=== PATIENT | female | born 1935 | race Caucasian/White ===

== ENCOUNTER 2017-12-26 09:11 | Inpatient (IN) | payer MEDICARE, OTHER ==
[~2017-12-26] VITALS: Ht 177.8 cm; Wt 91.6 kg
[2017-12-26] VITALS (29 sets, daily range): BP systolic 106–166; BP diastolic 75–110
--- OUTSIDE RECORDS SUMMARY | 2017-12-26 09:14 | XMS REPORT | Clinical Summary ---
Author Author [facility] Organization [facility] Address Unknown Phone Unavailable Care Team Providers Care Geometry Tutor Name Role Phone Asked, No Pcp PCP Unavailable Allergies Active Allergy Reactions Severity Noted Date Comments Clindamycin Other (See Comments) High 01/03/2017 Severe redness Penicillins Swelling 02/23/2017 Current Medications Prescription Sig. Disp. Refills Start End Date Status Date diclofenac (VOLTAREN) 1 % Apply topically 4 (four) 1 Tube 0 01/04/20 Active gel times a day. 17 Active Problems Problem Noted Date Stiffness of right knee 04/17/2017 Crepitus of joint of left knee 04/17/2017 Muscle weakness of lower extremity 04/17/2017 Muscle atrophy of lower extremity 04/17/2017 Bilateral post-traumatic osteoarthritis of knee 01/03/2017 Encounters Date Type Specialty Care Team Description 02/23/2017 Office Visit Sports Medicine Myles Malave MD Primary osteoarthritis of left knee (Primary Dx) 01/21/2017 Office Visit Orthopedic Surgery Christiano Gates MD Bilateral post-traumatic osteoarthritis of knee (Primary Dx); Stiffness of right knee; Crepitus of joint of left knee; Muscle weakness of lower extremity; Muscle atrophy of lower extremity 01/03/2017 Office Visit Sports Medicine Myles Malave MD Bilateral post-traumatic osteoarthritis of knee (Primary Dx) after 12/25/2016 Family History Medical History Relation Name Comments Diabetes Father Cancer Mother Relation Name Status Comments Father Mother Social History Tobacco Use Types Packs/Day Years Used Date Never Smoker Smokeless Tobacco: Never Used Alcohol Use Drinks/Week oz/Week Comments No Sex Assigned at Date Recorded Not on file Last Filed Vital Signs Vital Sign Reading Time Taken Blood Pressure 134/85 01/21/2017 11:53 AM STAFF DEVELOPMENT COORDINATOR Pulse 72 01/21/2017 11:53 AM STAFF DEVELOPMENT COORDINATOR Temperature - - Respiratory Rate - - Oxygen Saturation - - Inhaled Oxygen - - Concentration Weight 113 kg (250 lb) 01/03/2017 10:59 AM STAFF DEVELOPMENT COORDINATOR Height 160 cm (5' 3") 01/21/2017 11:53 AM STAFF DEVELOPMENT COORDINATOR Body Mass Index 44.29 01/03/2017 10:59 AM STAFF DEVELOPMENT COORDINATOR Plan of Treatment Health Maintenance Due Date Last Done Comments SHINGRIX VACCINE (#1) 1987 ZOSTER VACCINE 1997 PNEUMOCOCCAL 2002 POLYSACCHARIDE VACCINE AGE 65 AND OVER PNEUMOCOCCAL-13 2002 INFLUENZA VACCINE 09/21/2017 Procedures Procedure Name Priority Date/Time Associated Diagnosis Comments MI ARTHROCENTESIS Routine 02/23/2017 Primary osteoarthritis of Results for this ASPIR&/INJ MAJOR JT/BURSA 2:55 PM STAFF DEVELOPMENT COORDINATOR left knee procedure are in the W/O US results section. XR KNEE 1 OR 2 VW Routine 01/03/2017 Pain in both knees, Results for this BILATERAL 11:13 AM STAFF DEVELOPMENT COORDINATOR unspecified chronicity procedure are in the results section. after 12/25/2016 Results * Large Joint Arthrocentesis (02/23/2017 2:55 PM) Narrative Performed At Myles Malave MD 02/23/20172:55 PM Large Joint Arthrocentesis Consent given by: patient Site marked: site marked Timeout: Immediately prior to procedure a time out was called to verify the correct patient, procedure, equipment, vp software support and site/side marked as required Supporting Documentation Indications: pain Procedure Details Preparation: Patient was prepped and draped in the usual sterile fashion Location: knee - L knee Left side: Needle size: 20 G Approach: lateral Left knee medications administered: 2 mL bupivacaine 0.25 % (2.5 mg/mL); 80 mg methylPREDNISolone acetate 80 mg/mL; 5 mL lidocaine 10 mg/mL (1 %) Patient tolerance: patient tolerated the procedure well with no immediate complications * XR Knee 1 Or 2 Vw Bilateral (01/03/2017 11:13 AM) Narrative Performed At [facility] Right knee 2 views: Intramedullary hardware of the distal femur intact with no evidence of loosening or fractures. Severe tricompartmental osteoarthritis with scattered osteophytes Left knee 2 views: Severe tricompartmental joint space narrowing with scattered osteophytes. No obvious fractures or dislocations Performing Organization Address City/State/Zipcode Phone Number [facility] [address] [place] [address] after 12/25/2016 Insurance Payer Benefit Subscriber ID Type Phone Address Plan / Group HUMANA MEDICARE HUMANA xxxxxxxxx PPO MEDICARE PPO/PFFS/E [facility] [place] [address]
[2017-12-26] MEDS ORDERED: PIPER-TAZ 3.375 GM 50 ML IV ONE (09:30)
[2017-12-26] MEDS ORDERED: DIPHENHYDRAMINE HCL INJ 50 MG/ML VIAL IV ONE (09:30)
[2017-12-26] MEDS ORDERED: METRONIDAZOLE 500MG/NS 100ML 100 ML IV ONE (09:30)
[2017-12-26] MEDS ORDERED: DEXAMETHASONE SOD PHOS 10 MG/1 ML VIAL IV ONE (09:30)
[2017-12-26] MEDS ORDERED: ONDANSETRON HCL INJ 2 MG/ML VIAL IV PRN (10:00)
[2017-12-26] MEDS ORDERED: SODIUM CHLORIDE FLUSH 10 ML SYR INJ PRN (10:00)
[2017-12-26] MEDS ORDERED: MORPHINE SULFATE 2 MG/ML SYR IV PRN (10:00)
--- OUTSIDE RECORDS SUMMARY | 2017-12-26 10:46 | XMS REPORT | Clinical Summary ---
Author Author [facility] Address Unknown Phone Unavailable Care Team Providers Care Bisque Tile Burner Name Role Phone Asked, No Pcp PCP [...] Taken Blood Pressure 134/85 01/21/2017 11:53 AM CNC ROUTER OPERATOR Pulse 72 01/21/2017 11:53 AM CNC ROUTER OPERATOR Temperature - - Respiratory Rate - - Oxygen Saturation - - Inhaled Oxygen - - Concentration Weight 113 kg (250 lb) 01/03/2017 10:59 AM CNC ROUTER OPERATOR Height 160 cm (5' 3") 01/21/2017 11:53 AM CNC ROUTER OPERATOR Body Mass Index 44.29 01/03/2017 10:59 AM CNC ROUTER OPERATOR Plan of Treatment Health Maintenance Due Date Last Done Comments SHINGRIX VACCINE (#1) 1987 ZOSTER VACCINE 1997 PNEUMOCOCCAL 2002 POLYSACCHARIDE VACCINE AGE 65 AND OVER PNEUMOCOCCAL-13 2002 INFLUENZA VACCINE 09/21/2017 Procedures Procedure Name Priority Date/Time Associated Diagnosis Comments MS ARTHROCENTESIS Routine 02/23/2017 Primary osteoarthritis of Results for this ASPIR&/INJ MAJOR JT/BURSA 2:55 PM CNC ROUTER OPERATOR left knee procedure are in the W/O US results section. XR KNEE 1 OR 2 VW Routine 01/03/2017 Pain in both knees, Results for this BILATERAL 11:13 AM CNC ROUTER OPERATOR unspecified chronicity procedure are in the results section. after 12/25/2016 Results * Large Joint Arthrocentesis (02/23/2017 2:55 PM) Narrative Performed At Myles Malave MD 02/23/20172:55 PM Large Joint Arthrocentesis Consent given by: patient Site marked: site marked Timeout: Immediately prior to procedure a time out was called to verify the correct patient, procedure, equipment, rn support services and site/side marked as required Supporting Documentation [...] Organization Address City/State/Zipcode Phone Number [facility] [address] [place] [address] after 12/25/2016 Insurance Payer Benefit Subscriber ID Type Phone Address Plan / Group HUMANA MEDICARE HUMANA xxxxxxxxx PPO MEDICARE PPO/PFFS/E [facility] [place] [address]
[2017-12-26] MEDS: PIPER-TAZ 3.375 GM 50 ML IV SCH ×3 (12:00→23:38)
[2017-12-26] MEDS: DEXAMETHASONE SOD PHOS INJ 4 MG/ML VIAL IV SCH ×3 (12:00→23:38)
[2017-12-26 13:31] LABS: BILIRUBIN,URINE NEGATIVE (NEGATIVE); CLARITY,URINE HAZY (CLEAR); COLOR,URINE YELLOW (YELLOW); KETONES,URINE 1+ (NEGATIVE); LEUKOCYTE ESTERASE ,URINE 2+ (NEGATIVE); NITRITE,URINE NEGATIVE (NEGATIVE); PROTEIN,URINE DIPSTICK NEGATIVE (NEGATIVE); URINE UROBILINOGEN 0.2 mg/dL (0.2 - 1)
[2017-12-26 13:44] LABS: BACTERIA,URINE MODERATE /HPF; EPITHELIAL CELLS,URINE FEW /LPF; RBC,URINE 0-5 /HPF (0-5)
[2017-12-26] MEDS ORDERED: MULTIVITAMINS1 EAC6 PO (13:51)
[2017-12-26] MEDS ORDERED: EYE DROPS15 M1 OP (13:53)
[2017-12-26] MEDS: METRONIDAZOLE 500MG/NS 100ML 100 ML IV SCH (18:00)
[2017-12-27] VITALS (16 sets, daily range): BP systolic 107–149; BP diastolic 67–107
[2017-12-27] MEDS: METRONIDAZOLE 500MG/NS 100ML 100 ML IV SCH ×3 (00:22→12:20)
[2017-12-27] MEDS: PIPER-TAZ 3.375 GM 50 ML IV SCH ×2 (05:21→11:45)
[2017-12-27] MEDS: DEXAMETHASONE SOD PHOS INJ 4 MG/ML VIAL IV SCH ×2 (05:21→11:45)
[2017-12-27] MEDS ORDERED: LEVAQUIN500 MG PO (13:59)
[2017-12-27] MEDS ORDERED: [UNRECOGNIZED DRUG - OTHER] (14:01)
[2017-12-27] MEDS ORDERED: METHYLPREDNISOLO4 M1 (15:34)
[2017-12-27] MEDS ORDERED: [UNRECOGNIZED DRUG - OTHER] ×2 (15:39→15:40)
[2017-12-27] MEDS ORDERED: [UNRECOGNIZED DRUG - SUPPLY] (15:57)
[2017-12-27] MEDS ORDERED: MORPHINE SULFATE INJ 4 MG/ML INJ IV PRN (17:00)
--- NOTE | 2018-02-18 03:28 | Discharge Summary ---
CHIEF COMPLAINT: Dental carries and Mikal's angina. FINAL DIAGNOSES 1. Angioedema of tongue. 2. Urinary tract infection. DISPOSITION: Home. HOSPITAL COURSE: An 82-year-old female with no known past medical history and on no medications, admitted after being seen in the ER with one-day history of progressive swelling of her tongue. Denies taking anything or eating anything out of the ordinary. No other complaints. She was reviewed in the emergency room; noted with swelling of her tongue, she was having some difficulty swallowing. Further management of care in the emergency room led to admission for evaluation and management regarding findings of angioedema of tongue, etiology uncertain. Will be admitting to ICU and will begin IV steroids. Will be culturing her urine. While in the ICU, she was placed on a full liquid diet. Resting comfortably and as her medications were being administered, the swelling of her tongue was subsiding. She was receiving Flagyl as well as Zosyn along with dexamethasone 5 mg q.6 hours. Morphine was being given for pain management. She was on IV fluids. Urine studies were being conducted. Cultures were showing evidence of gram-negative bacillus. Patient will be able to be cared for further on an outpatient basis with p.o. medications and she was cleared for discharge. She will be given a Medrol Dosepak along with Levaquin for 7 days and she was released home on December 27, 2017 in good condition. Laboratory studies on the patient were showing CBC with normal white count. Hemoglobin was stable. Electrolytes were stable. DISCHARGE INSTRUCTIONS: With the discharge, she will continue on her current medications and current diet. She will be returning to her PCP within 7 to 10 days. Her diet will be as tolerated and activity will be as tolerated. As mentioned, she was given a prescription for Levaquin as well as a Medrol Dosepak. Arrangements will be made through [employer] with assistance of case management, social security benefits interviewer to arrange for an electric scooter. She will also continue on her multivitamins with minerals 1 tablet daily and she will continue on her eye drops twice a day for her macular degeneration. Her methylprednisolone as mentioned will be the Medrol Dosepak. She will be calling her PCP if she has any further questions or concerns. Dictated By: TAMMI Aguilar Job#: [id number] MARKY
== END 2017-12-27 16:15 | disposition home or self-care (01) | DRG 158 ==
LOC: FSED 09:11 → ERHOLD 09:58 → ICU 12:18
DX: K12.2 Cellulitis and abscess of mouth (principal); N39.0 Urinary tract infection, site not specified; T78.3XXA Angioneurotic edema, initial encounter; K14.0 Glossitis; K02.9 Dental caries, unspecified; B96.89 Other specified bacterial agents as the cause of diseases classified elsewhere
CPT/HCPCS: 80053; 81001; 85025; 87040; 87086; 87186; 97139; 99284; J1100; J1200; J2270; J2405; J2543